=== PATIENT | female | born 1990 | race Caucasian/White ===

== ENCOUNTER 2016-08-06 21:35 | Outpatient (CLI) | payer MEDICAID ==
[~2016-08-06] VITALS: Ht 157.5 cm; Wt 107.3 kg
[2016-08-06] MEDS ORDERED: PRENATAL 1+1)(P1 TAB PO (22:27)
[2016-08-06] MEDS ORDERED: ACETAMINOPHEN325 MG PO (22:28)
[2016-08-06] MEDS ORDERED: ZANTAC (NON-FO150 MG PO (22:29)
[2016-08-06] MEDS ORDERED: PHENERGAN25 M1 PO (22:30)
== END 2016-08-06 23:35 | disposition disaster alternative care site (69) ==
LOC: GOBS 21:35 → GOBM 21:35
DX: O47.1 False labor at or after 37 completed weeks of gestation (principal); Z3A.37 37 weeks gestation of pregnancy
CPT/HCPCS: G0463

== ENCOUNTER 2016-08-22 19:46 | Outpatient (CLI) | payer MEDICAID ==
[~2016-08-22] VITALS: Ht 157.5 cm; Wt 108.4 kg
[~2016-08-22 19:46] MED LIST: ACETAMINOPHEN325 MG PO; PHENERGAN25 M1 PO; PRENATAL 1+1)(P1 TAB PO; ZANTAC (NON-FO150 MG PO
[2016-08-22] MEDS ORDERED: PROAIR RESPICL90 MCG INH (20:50)
== END 2016-08-22 21:36 | disposition disaster alternative care site (69) ==
LOC: GOBS 19:46 → GOBM 19:46 → GOBS 19:47 → GOBM 21:36
DX: O47.1 False labor at or after 37 completed weeks of gestation (principal); O99.52 Diseases of the respiratory system complicating childbirth; J45.909 Unspecified asthma, uncomplicated; Z87.891 Personal history of nicotine dependence; Z3A.39 39 weeks gestation of pregnancy
CPT/HCPCS: G0463

== ENCOUNTER 2016-08-26 00:06 | Inpatient (IN) | payer MEDICAID ==
[~2016-08-26] VITALS: Ht 157.5 cm; Wt 106.0 kg
--- NOTE | ~2016-08-26 | OR ---
PATIENT'S NAME: BENITO [facility] AGE: 25 Y [address] ROOM: [place] [id number] LOCATION: [facility] ADMIT DATE: 08/26/2016 OR/Procedure Report DISCHARGE DATE: FAMILY PHYSICIAN: PHYSICIAN, NO ATTENDING PHYSICIAN: Leiws Dumont SURGEON: Deanne Crouch MD CHILD PROTECTIVE INVESTIGATOR: DATE OF PROCEDURE: 08/26/2016 PREOPERATIVE DIAGNOSES: 1. Intrauterine at 40 weeks and 1 day. 2. Premature rupture of membranes. 3. Failed induction of labor. POSTOPERATIVE DIAGNOSES: 1. Intrauterine at 40 weeks and 1 day. 2. Premature rupture of membranes. 3. Failed induction of labor. PROCEDURE PERFORMED: Primary low transverse section. CHILD PROTECTIVE INVESTIGATOR SURGEON: Rosana Granados MD. Dr. Rosana Granados was necessary for adequate visualization of tissues and delivery of the fetus. ESTIMATED BLOOD LOSS: 600 mL. FINDINGS: Female infant, score of 8 and 9. Weight, pending. Normal uterus, tubes, and ovaries. DRAINS: Mae. SPECIMENS: Placenta. COMPLICATIONS: None. INDICATIONS: This patient is a 25-year-old, 1 female. She presented at 02:00 a.m. in the morning with spontaneous rupture of membranes. She had Pitocin maximum of 21 milliunits for multiple hours but only progressed to 2 cm dilated. The decision was then made for section. Prior to the procedure; the risks, benefits, and alternatives to the procedure were discussed with the patient. She understood the risks to be, but not to be limited to, bleeding, infection, damage to the bowel, bladder, ureter, and surrounding organs and desired to proceed. PATIENT'S NAME: BENITO [facility] AGE: 25 Y [address] ROOM: [place] [id number] LOCATION: [facility] ADMIT DATE: 08/26/2016 OR/Procedure Report DISCHARGE DATE: FAMILY PHYSICIAN: PHYSICIAN, NO ATTENDING PHYSICIAN: Lewis Dumont DESCRIPTION OF PROCEDURE: The patient was taken to the operating room. Anesthesia was found to be adequate. She was prepped and draped in dorsal supine position with leftward tilt. Pfannenstiel skin incision was made and carried down to the fascia. The fascia was incised. Fascial incision was extended. The rectus muscles were . The peritoneum was entered. Uterus was incised in a low transverse fashion with the scalpel. The uterine incision was extended with vertical traction. Surgeon's hand was inserted into the uterus. The head delivered. The rest of fetus delivered. The nose and mouth were bulb suctioned. Cord was clamped and cut. The infant was handed to awaiting team. Cord blood was drawn. The placenta delivered with manual traction. Uterus was exteriorized and cleared of clots and debris. It was repaired with 0 Vicryl in running locked fashion. It was returned to the abdomen. The gutters were cleared of clots and debris. The fascia was repaired with 0 Vicryl in running fashion. Subcutaneous adipose tissue was irrigated. It was reapproximated with 2-0 Vicryl suture. The skin was closed with 4-0 Vicryl suture and Steri-Strips were placed. Counts were correct. COMPLICATIONS: None. CONDITION: Mom stable in room. Baby went to Nursery. MD WADE DUDLEY/juanita /[id number] d: 08/27/16 1851 t: 09/01/16 1056, OPERATIVE SUMMARY
[~2016-08-26 00:06] MED LIST changes: +PROAIR RESPICL90 MCG INH
[2016-08-26 04:00] LABS: BASOPHIL % 0.3 %; EOSINOPHIL % 0.3 %; HEMATOCRIT 33.7 % (33.0-46.0); IMMATURE GRANULOCYTE # 0.1 K/uL (0.0-0.3); IMMATURE GRANULOCYTE % 0.5 %; LYMPHOCYTE # 2.4 K/uL (0.8-4.0); LYMPHOCYTE % 20.1 %; MCH 31.5 pg (27.0-34.0); MCHC 35.6 gm/dL (32.0-36.5); MCV 88.5 fl (83.0-98.0); MONOCYTE # 0.8 K/uL (0.0-1.0); MONOCYTE % 6.9 %; MPV 10.7 fl (9.4-12.4); NEUTROPHIL # (ANC) 8.7 K/uL (1.8-7.8); NEUTROPHIL % 71.9 %; NRBC % 0 /100WBC (0-0.00); PLATELET COUNT 206 K/uL (150-450); RBC 3.81 M/uL (3.50-5.00); RDW-CV 12.8 % (11.9-14.6); WBC 12.1 K/uL (4.0-11.0)
[2016-08-27 05:00] LABS: BASOPHIL % 0.2 %; EOSINOPHIL # 0.1 K/uL (0.0-0.5); EOSINOPHIL % 0.4 %; HEMOGLOBIN 9.3 g/dL (11.0-15.0); IMMATURE GRANULOCYTE # 0.1 K/uL (0.0-0.3); IMMATURE GRANULOCYTE % 0.4 %; LYMPHOCYTE # 2.3 K/uL (0.8-4.0); LYMPHOCYTE % 16.4 %; MCH 31.3 pg (27.0-34.0); MCV 89.2 fl (83.0-98.0); MONOCYTE % 7.5 %; MPV 10.7 fl (9.4-12.4); NEUTROPHIL # (ANC) 10.4 K/uL (1.8-7.8); NEUTROPHIL % 75.1 %; NRBC % 0 /100WBC (0-0.00); RBC 2.97 M/uL (3.50-5.00); RDW-CV 12.7 % (11.9-14.6); WBC 13.8 K/uL (4.0-11.0)
[2016-08-27 05:02] LABS: HEMATOCRIT 26.5 % (33.0-46.0); MCHC 35.1 gm/dL (32.0-36.5); PLATELET COUNT 149 K/uL (150-450)
--- NOTE | 2016-08-27 05:36 | NUR ---
vss. fundus firm, -1, small flow. ge pulled at 0400. up to BR at 0500, voided, pericare done. received IM methergine at 2350. bleeding now wnl. microfoam to incision c/d/i. percocet and toradol next due at 0945.
--- NOTE | 2016-08-27 17:16 | NUR ---
Met with patient and baby at bedside. Introduced myself and explained my role with the CM department. Instructed patient to contact Medicaid within 30 days to get baby added to the policy. Per patient she has one roommate that she lives with. The FOB is not involved and patient does not want him involved. She states she has good support from her roommate, sister and mom. Her plans are to eventually return to work and her roommate will care for the baby when patient is working. I provided her with a list of community resources. She is already connected with [facility]. She states she has all necessary baby items at home. Discussed signs and symptoms of post depression with her and left her reading material. She has a counselor, Veronika Ng at [employer] and has good support with her. She denies any concerns or needs at this time.
--- NOTE | 2016-08-27 17:38 | NUR ---
Significant Event: Follow up: VSS, hbg 9.3, from 12.0, sl dc'd. Feso4 initiated po. Voiding well, no clots, needs encouragement to get up & ambulate, showered, abd dressing removed , incision int, with steri strips. Likes ice to abd. Medicated with Percocet 2) @ 8485. cert info sheet complete.
--- NOTE | 2016-08-28 04:21 | NUR ---
vss, fundus firm, at umbilicus, small flow. incision looks good. 1 percocet and motrin given at 2140. 2 percocet given at 0329. certificate done. roommate and pt still need to watch videos. home tomorrow.
--- NOTE | 2016-08-28 17:36 | NUR ---
Last VS: T:98.3 P:88 R: 16 BP: 121/69 Pain ratin>2 Last pain med: Percocet/MOTRIN Medicated at: 1536 Effective: Yes R Lung sounds: , L Lung sounds: Fundus:, , Lochia: , Breasts: , Nipples: Incision: , Incision appearance: Incision closure: Bowel sounds: Passing flatus: Y Voiding well: Y Significant event: *.SITTING UP IN CHAIR TO BF BABY NOW @ 3845. ORDERED SUPPER. WALKED IN RODRIGUEZ W/ BETZAIDA Cavazos TODAY.
[2016-08-29] MEDS ORDERED: FEOSOL325 MG PO (14:52)
[2016-08-29] MEDS ORDERED: APNO TOP (14:52)
[2016-08-29] MEDS ORDERED: MOTRIN800 MG PO (14:54)
[2016-08-29] MEDS ORDERED: LANSINOH7 GM TOP (14:54)
[2016-08-29] MEDS ORDERED: PERCOCET 5-3251 EACH PO (14:56)
== END 2016-08-29 16:10 | disposition disaster alternative care site (69) | DRG 766 ==
LOC: GOBS 00:06 → GOBM 00:06 → GOBS 00:07 → GOBM 00:07 → GOBS 08-29 16:10
PROVIDERS: ADMIT Obstetrics & Gynecology
PROC: 10D00Z1 Extraction of Products of Conception, Low, Open Approach (ICD-10-PCS; principal; 2016-08-26)
DX: O42.02 Full-term premature rupture of membranes, onset of labor within 24 hours of rupture (principal); O48.0 Post-term pregnancy; O77.0 Labor and delivery complicated by meconium in amniotic fluid; O61.0 Failed medical induction of labor; O62.1 Secondary uterine inertia; Z3A.40 40 weeks gestation of pregnancy; Z37.0 Single live birth
CPT/HCPCS: J0690; J1885; J1956; J2001; J2210; J2590; J3010; J7120